=== PATIENT | female | born 1965 | race Caucasian/White ===

== ENCOUNTER 2017-11-16 08:32 | Emergency (ER) | payer BC ==
[2017-11-16] MEDS ORDERED: Sodium Chloride 0.9% 1,000 ML IV SCH ×2 (08:45→09:30)
--- NOTE | 2017-11-16 08:54 | EDM.PDOC ---
ED HPI GENERAL MEDICAL PROBLEM - General Stated Complaint: CHEST PAIN Time Seen by Provider: 11/16/17 08:25 Source of Information: Reports: Patient, Family History Limitations: Reports: No Limitations - History of Present Illness INITIAL COMMENTS - FREE TEXT/NARRATIVE: c/o dizzy, sob, cp L TKR 1m ago, at home with her yesterday doing knee exercises 3x felt fine an awakening, in kitchen and felt quite lightheaded and dizzy, sat on the floor, began to hyperventilate, EMS called, had nonspecific upper sternal CP , PO 87% on arrival here on 2 l/min altho improved to 99% in 10 minutes without addition O2 or meds never smoked, no CV hx hyperventilating and quite anxious, made limited effort to decrease respirations SBP 118, then 109, reports it usually runs 140 no leg swelling or calf pain no f/c/d, no n/v, no cough - Related Data Allergies Allergy/AdvReac Type Severity Reaction Status Date / Time No Known Allergies Allergy Verified 11/16/17 10:24 ED ROS GENERAL - Review of Systems Review Of Systems: See Below Constitutional: Reports: No Symptoms HEENT: Reports: No Symptoms Respiratory: Reports: Shortness of Breath. Denies: Cough Cardiovascular: Reports: No Symptoms Endocrine: Reports: No Symptoms GI/Abdominal: Reports: No Symptoms : Reports: No Symptoms Musculoskeletal: Reports: No Symptoms Skin: Reports: No Symptoms Neurological: Reports: No Symptoms Psychiatric: Reports: Anxiety Hematologic/Lymphatic: Reports: No Symptoms Immunologic: Reports: No Symptoms ED EXAM, DIZZINESS - Physical Exam Exam: See Below Exam Limited By: No Limitations General Appearance: Alert, WD/WN, Anxious, Mild Distress, Other ( hyperventilating, quite anxious, panicky, insisted on using commode immediately upon arrival) Eye Exam: Bilateral Eye: Normal Inspection, PERRL Ears: Normal External Exam Nose: Normal Inspection, Normal Mucosa, No Blood Throat/Mouth: Normal Inspection, Normal Lips, Normal Teeth, Normal Gums, Normal Voice, No Airway Compromise Head Exam: Atraumatic, Normocephalic Neck: Normal Inspection, Supple, Non-Tender, Full Range of Motion Respiratory/Chest: No Respiratory Distress, Lungs Clear, Normal Breath Sounds, No Accessory Muscle Use, Chest Non-Tender, Other (tachypnea, clear, good AE) Cardiovascular: No Edema, No Gallop, No JVD, No Murmur, No Rub, Tachycardia, Other (mild tachy, regular, 2/6 ELVI at LSB) GI/Abdominal: Soft, Non-Tender, No Distention Neurological: Alert, CN II-XII Intact, No Motor/Sensory Deficits, Oriented x 3 Back Exam: Normal Inspection, Full Range of Motion, NT Extremities: Normal Inspection, Normal Range of Motion, Non-Tender, Other ( trace edema b/l, symmetric) Psychiatric: Anxious Skin Exam: Warm, Dry, Intact, Normal Color, No Rash Course - Vital Signs Last Recorded V/S: Last Vital Signs Temp Pulse Resp BP Pulse Ox 98 11/16/17 09:43 - Orders/Labs/Meds Orders: Active Orders 24 hr Category Date Time Status Chest 1V Frontal [CR] Stat Exams 11/16/17 08:41 Taken Chest w Cont [CT] Stat Exams 11/16/17 09:40 Taken CULTURE BLOOD [BC] Urgent Lab 11/16/17 09:40 Received CULTURE BLOOD [BC] Urgent Lab 11/16/17 09:45 Received INFLUENZA A+B AG SCREEN [RM] Stat Lab 11/16/17 09:15 Ordered URINALYSIS W/MICROSCOPIC [UA W/MICROSCOPIC] [URIN] Stat Lab 11/16/17 08:50 Received Heparin Sodium/0.45% NaCl [Heparin 25,000 Units in 1/2 Med 11/16/17 09:45 Active NS 500 ML] 25,000 units in 500 ml IV TITRATE Piperacillin/Tazobactam [Zosyn] 4.5 gm Med 11/16/17 09:45 Active Sodium Chloride 0.9% [Normal Saline] 100 ml IV Q6H Sodium Chloride 0.9% [Normal Saline] 1,000 ml Med 11/16/17 08:45 Active IV ASDIRECTED Sodium Chloride 0.9% [Normal Saline] 1,000 ml Med 11/16/17 09:30 Active IV ASDIRECTED Blood Culture x2 Reflex Set [OM.PC] Urgent Oth 11/16/17 09:20 Ordered EKG 12 Lead [EK] Routine Ther 11/16/17 08:41 Ordered EKG 12 Lead [EK] Routine Ther 11/16/17 09:47 Ordered Medication Orders Sodium Chloride (Normal Saline) 1,000 mls @ 999 mls/hr IV ASDIRECTED SUZIE Sodium Chloride (Normal Saline) 1,000 mls @ 999 mls/hr IV ASDIRECTED SUZIE Last Admin: 11/16/17 10:00 Dose: 999 mls/hr Piperacillin Sod/Tazobactam (Sod 4.5 gm/ Sodium Chloride) 100 mls @ 200 mls/hr IV Q6H SUZIE Last Admin: 11/16/17 10:27 Dose: 200 mls/hr Heparin Sodium/Sodium Chloride (Heparin 25,000 Units In 1/2 Ns 500 Ml) 25,000 units in 500 mls @ 20.002 mls/hr IV TITRATE SUZIE; 10.4 UNITS/KG/HR PRN Reason: Protocol Last Admin: 11/16/17 10:27 Dose: 10.4 units/kg/hr, 20.002 mls/hr Labs: Laboratory Tests 11/16/17 11/16/17 11/16/17 Range/Units 08:55 08:55 08:55 WBC 20.5 H (4.5-12.0) X10-3/uL RBC 4.68 (3.23-5.20) x10(6)uL Hgb 13.8 (11.5-15.5) g/dL Hct 40.7 (30.0-51.3) % MCV 86.9 (80-96) fL MCH 29.4 (27.7-33.6) pg MCHC 33.9 (32.2-35.4) g/dL RDW 12.5 (11.5-15.5) % Plt Count 365 (125-369) X10(3)uL MPV 7.8 (7.4-10.4) fL Add Manual Diff Yes Neutrophils % (Manual) 76 (46-82) % Lymphocytes % (Manual) 21 (13-37) % Monocytes % (Manual) 3 L (4-12) % PT (8.7-11.1) INR (0.89-1.13) APTT (24.4-33.2) SECONDS D-Dimer, Quantitative > 5000 H (100-400) ng/mL Sodium 141 (135-145) mmol/L Potassium 3.0 L (3.5-5.3) mmol/L Chloride 101 (100-110) mmol/L Carbon Dioxide 27 (21-32) mmol/L BUN 20 H (7-18) mg/dL Creatinine 1.1 H (0.55-1.02) mg/dL Est Cr Clr Drug Dosing TNP Estimated GFR (MDRD) 52 L (>60) BUN/Creatinine Ratio 18.2 (9-20) Glucose 214 H (80-116) mg/dL Lactic Acid (0.4-2.2) mmol/L Calcium 9.0 (8.6-10.2) mg/dL Magnesium (1.8-2.5) mg/dL Total Bilirubin 0.4 (0.1-1.3) mg/dL AST 19 (5-25) IU/L ALT 21 (12-36) U/L Alkaline Phosphatase 76 (56-112) IU/L Troponin I (<0.017-0.056) ng/mL C-Reactive Protein (0.5-0.9) mg/dL Total Protein 7.8 (6.0-8.0) g/dL Albumin 3.1 L (3.5-5.2) g/dL Globulin 4.7 g/dL Albumin/Globulin Ratio 0.7 11/16/17 11/16/17 11/16/17 Range/Units 08:55 08:55 08:55 WBC (4.5-12.0) X10-3/uL RBC (3.23-5.20) x10(6)uL Hgb (11.5-15.5) g/dL Hct (30.0-51.3) % MCV (80-96) fL MCH (27.7-33.6) pg MCHC (32.2-35.4) g/dL RDW (11.5-15.5) % Plt Count (125-369) X10(3)uL MPV (7.4-10.4) fL Add Manual Diff Neutrophils % (Manual) (46-82) % Lymphocytes % (Manual) (13-37) % Monocytes % (Manual) (4-12) % PT 10.2 (8.7-11.1) INR 1.01 (0.89-1.13) APTT (24.4-33.2) SECONDS D-Dimer, Quantitative (100-400) ng/mL Sodium (135-145) mmol/L Potassium (3.5-5.3) mmol/L Chloride (100-110) mmol/L Carbon Dioxide (21-32) mmol/L BUN (7-18) mg/dL Creatinine (0.55-1.02) mg/dL Est Cr Clr Drug Dosing Estimated GFR (MDRD) (>60) BUN/Creatinine Ratio (9-20) Glucose (80-116) mg/dL Lactic Acid 3.1 H (0.4-2.2) mmol/L Calcium (8.6-10.2) mg/dL Magnesium (1.8-2.5) mg/dL Total Bilirubin (0.1-1.3) mg/dL AST (5-25) IU/L ALT (12-36) U/L Alkaline Phosphatase (56-112) IU/L Troponin I 0.166 H* (<0.017-0.056) ng/mL C-Reactive Protein 5.2 H* (0.5-0.9) mg/dL Total Protein (6.0-8.0) g/dL Albumin (3.5-5.2) g/dL Globulin g/dL Albumin/Globulin Ratio 11/16/17 11/16/17 Range/Units 08:55 08:55 WBC (4.5-12.0) X10-3/uL RBC (3.23-5.20) x10(6)uL Hgb (11.5-15.5) g/dL Hct (30.0-51.3) % MCV (80-96) fL MCH (27.7-33.6) pg MCHC (32.2-35.4) g/dL RDW (11.5-15.5) % Plt Count (125-369) X10(3)uL MPV (7.4-10.4) fL Add Manual Diff Neutrophils % (Manual) (46-82) % Lymphocytes % (Manual) (13-37) % Monocytes % (Manual) (4-12) % PT (8.7-11.1) INR (0.89-1.13) APTT 24.6 (24.4-33.2) SECONDS D-Dimer, Quantitative (100-400) ng/mL Sodium (135-145) mmol/L Potassium (3.5-5.3) mmol/L Chloride (100-110) mmol/L Carbon Dioxide (21-32) mmol/L BUN (7-18) mg/dL Creatinine (0.55-1.02) mg/dL Est Cr Clr Drug Dosing Estimated GFR (MDRD) (>60) BUN/Creatinine Ratio (9-20) Glucose (80-116) mg/dL Lactic Acid (0.4-2.2) mmol/L Calcium (8.6-10.2) mg/dL Magnesium 2.1 (1.8-2.5) mg/dL Total Bilirubin (0.1-1.3) mg/dL AST (5-25) IU/L ALT (12-36) U/L Alkaline Phosphatase (56-112) IU/L Troponin I (<0.017-0.056) ng/mL C-Reactive Protein (0.5-0.9) mg/dL Total Protein (6.0-8.0) g/dL Albumin (3.5-5.2) g/dL Globulin g/dL Albumin/Globulin Ratio Meds: Medications Generic Name Dose Route Start Last Admin Trade Name Freq PRN Reason Stop Dose Admin Sodium Chloride 1,000 mls @ 999 mls/hr 11/16/17 08:45 Normal Saline IV ASDIRECTED SUZIE Sodium Chloride 1,000 mls @ 999 mls/hr 11/16/17 09:30 11/16/17 10:00 Normal Saline IV 999 mls/hr ASDIRECTED SUZIE Administration Piperacillin Sod/Tazobactam 100 mls @ 200 mls/hr 11/16/17 09:45 11/16/17 10: 27 Sod 4.5 gm/ Sodium Chloride IV 200 mls/hr Q6H SUZIE Administration Heparin Sodium/Sodium Chloride 25,000 units in 500 mls @ 20.002 mls/hr 09:45 11/16/17 10:27 Heparin 25,000 Units In 1/2 Ns 500 Ml IV 10.4 units/kg/hr TITRATE SUZIE 20.002 mls/hr Protocol Administration 10.4 UNITS/KG/HR Discontinued Medications Generic Name Dose Route Start Last Admin Trade Name Freq PRN Reason Stop Dose Admin Heparin Sodium (Porcine) 4,000 units 11/16/17 10:15 11/16/17 10:25 Heparin Sodium IVPUSH 11/16/17 10:16 4,000 units ONETIME ONE Administration Iopamidol 75 ml 03/19/18 09:52 Isovue-370 (76%) IV 11/16/17 09:53 ONETIME ONE Potassium Chloride 40 meq 11/16/17 09:36 Klor-Con M20 PO 11/16/17 09:37 ONETIME ONE - Re-Assessments/Exams Free Text/Narrative Re-Assessment/Exam: 11/16/17 10:34 chest CTA with b/l 1st order PEs, accepted by Dr Donohue at ICU at [facility] in [facility], use of TPA discussed and agreed to continue monitor remains tachy at 115 but stable SBP 91 and stable after 1 liters NS, lactic acid 3.1, not required pressors, is in Trendelenburg trop 0.16, EKG with developing strain pattern Dr Donohue will repeat labs and do echo upon arrival and decide re additional interventions then images pushed pt and agree, under dx and seriousness Departure - Departure Time of Disposition: 10:36 Disposition: DC/Tfer to Acute Hospital 02 Condition: Serious Clinical Impression: Bilateral pulmonary embolism, Elevated troponin, Elevated lactic acid level, Hypokalemia - Discharge Information Referrals: Robb Orellana MD [Primary Care Provider] - - My Orders Last 24 Hours: My Active Orders 11/16/17 08:41 Chest 1V Frontal [CR] Stat EKG 12 Lead [EK] Routine 11/16/17 08:45 Sodium Chloride 0.9% [Normal Saline] 1,000 ml IV ASDIRECTED 11/16/17 08:50 URINALYSIS W/MICROSCOPIC [UA W/MICROSCOPIC] [URIN] Stat 11/16/17 09:15 INFLUENZA A+B AG SCREEN [RM] Stat 11/16/17 09:20 Blood Culture x2 Reflex Set [OM.PC] Urgent 11/16/17 09:30 Sodium Chloride 0.9% [Normal Saline] 1,000 ml IV ASDIRECTED 11/16/17 09:40 Chest w Cont [CT] Stat CULTURE BLOOD [BC] Urgent 11/16/17 09:45 CULTURE BLOOD [BC] Urgent Heparin Sodium/0.45% NaCl [Heparin 25,000 Units in 1/2 NS 500 ML] 25,000 units in 500 ml IV TITRATE Piperacillin/Tazobactam [Zosyn] 4.5 gm Sodium Chloride 0.9% [Normal Saline] 100 ml IV Q6H 11/16/17 09:47 EKG 12 Lead [EK] Routine - Assessment/Plan Last 24 Hours: My Active Orders 11/16/17 08:41 Chest 1V Frontal [CR] Stat EKG 12 Lead [EK] Routine 11/16/17 08:45 Sodium Chloride 0.9% [Normal Saline] 1,000 ml IV ASDIRECTED 11/16/17 08:50 URINALYSIS W/MICROSCOPIC [UA W/MICROSCOPIC] [URIN] Stat 11/16/17 09:15 INFLUENZA A+B AG SCREEN [RM] Stat 11/16/17 09:20 Blood Culture x2 Reflex Set [OM.PC] Urgent 11/16/17 09:30 Sodium Chloride 0.9% [Normal Saline] 1,000 ml IV ASDIRECTED 11/16/17 09:40 Chest w Cont [CT] Stat CULTURE BLOOD [BC] Urgent 11/16/17 09:45 CULTURE BLOOD [BC] Urgent Heparin Sodium/0.45% NaCl [Heparin 25,000 Units in 1/2 NS 500 ML] 25,000 units in 500 ml IV TITRATE Piperacillin/Tazobactam [Zosyn] 4.5 gm Sodium Chloride 0.9% [Normal Saline] 100 ml IV Q6H 11/16/17 09:47 EKG 12 Lead [EK] Routine
[2017-11-16] MEDS ORDERED: Potassium Chloride 20 MEQ Tab.ER PO ONE (09:36)
[2017-11-16] MEDS ORDERED: Piperacillin/Tazobactam 4.5 GM in Sodium Chloride 0.9% 100 ML IV SCH (09:45)
[2017-11-16] MEDS ORDERED: Heparin Sodium/0.45% NaCl 25,000 UNITS/500 ML BAG IV SCH (09:45)
[2017-11-16] MEDS ORDERED: Iopamidol 755 Mg/ML 75 ML Bottle IV ONE (09:52)
[2017-11-16] MEDS ORDERED: Heparin Sodium 5,000 Units/ML Vial IVPUSH ONE (10:15)
[2017-11-16] MEDS ORDERED: Norepinephrine 4 MG in Dextrose 5% in Water 246 ML IV SCH ×2 (11:00)
--- NOTE | 2017-11-16 11:14 | CT ---
INDICATION: Short of breath, D-dimer greater than 5,000. COMPUTERIZED TOMOGRAPHY ANGIOGRAPHY OF THE CHEST WITH CONTRAST FOR PULMONARY ARTERIES: Spiral 1.25-mm images were obtained through the chest with 75 mL Isovue-370 at 2.5 mL per second, with sagittal and coronal reconstructions, . No comparisons were available. Total Exam DLP = 848.85 mGy-cm. The images were slightly ahead of the bolus of contrast, making detail less than ideal of the more peripheral pulmonary arteries. However, there is definite evidence for central pulmonary emboli in first order pulmonary arteries bilaterally. A saddle embolus was not present, however. Some of the emboli appear to be extending into the more peripheral pulmonary arteries. The severity of the pulmonary emboli appears to be slightly greater on the left. There is some parenchymal density at the left lung base - left lower lobe posteriorly at the diaphragm, which may be on the basis of minimal areas of pulmonary infarct, as they are subpleural in location, but it could also be on the basis of minimal pneumonia or possibly fibrosis. There is an appearance suggesting lobar pulmonary emphysema, although some edema may also be present in the interstitium. No mediastinal mass was identified. The heart appears enlarged. Small fixed hiatal hernia is suggested. No gross abnormality of the included upper abdomen was noted. IMPRESSION: Fairly extensive bilateral pulmonary emboli centrally and appearing to extend more peripherally also - detail less than ideal due to images somewhat ahead of the bolus of contrast. Report was called to Dr. Pantoja immediately after the examination was completed, 11/16/2017. CORINA
--- NOTE | 2017-11-16 16:29 | CR ---
INDICATION: Chest pain. CHEST: Portable AP upright view of the chest was obtained 11/16/2017 and revealed the heart to be enlarged, the aorta slightly tortuous. Overlying EKG leads are noted. An active infiltrate or effusion was not identified. IMPRESSION: 1. No acute process. 2. ASHD. MTDD
== END 2017-11-16 11:17 ==
LOC: FB.ED 08:32
DX: I26.99 Other pulmonary embolism without acute cor pulmonale (principal); R79.89 Other specified abnormal findings of blood chemistry; E87.6 Hypokalemia
CPT/HCPCS: 36415; 71045; 71260; 80053; 83605; 83735; 84484; 85025; 85379; 85610; 85730; 86140; 87040; 93005; 96365; 96375; 99285; A9270; J1644; J2543; J7030; J7040; J7060

== ENCOUNTER 2018-05-10 21:21 | Emergency (ER) | payer BC ==
[2018-05-10] MEDS ORDERED: Alum Hydroxide/Mag Hydroxide 15 ML, Lidocaine 2% 15 ML PO ONE ×2 (21:41)
--- NOTE | 2018-05-10 21:48 | EDM.PDOC ---
ED HPI GENERAL MEDICAL PROBLEM - General Chief Complaint: Chest Pain Stated Complaint: CHEST PAIN Time Seen by Provider: 05/10/18 21:35 Source of Information: Reports: Patient, Family, Old Records History Limitations: Reports: No Limitations - History of Present Illness INITIAL COMMENTS - FREE TEXT/NARRATIVE: Katy comes into [facility] ED with a 7 hour hx of retrosternal chest pain, nonradiating, characterized as a pressure sensation. There is no palpitations, sweats, rut dyspnea, dizziness, lt headiness, heartburn, gas or belching. She continued shift work and confided to spouse when she got home. She has tried no meds. There is a PMH of PE in October 2017, associated with a L DVT. She has been on Jantoven ever since, last INR 2.2 taken last week. - Related Data Allergies Allergy/AdvReac Type Severity Reaction Status Date / Time No Known Allergies Allergy Verified 05/10/18 22:43 Home Meds: Home Meds Warfarin Sodium [Jantoven] 7.5 mg PO SUTUWETHSA 05/10/18 [History] Warfarin Sodium [Jantoven] 10 mg PO MOFR 05/10/18 [History] amLODIPine Besylate [Amlodipine Besylate] 10 mg PO DAILY 05/10/18 [History] Past Medical History Cardiovascular History: Reports: Blood Clots/VTE/DVT, Hypertension Respiratory History: Reports: PE - Past Surgical History Musculoskeletal Surgical History: Reports: Knee Replacement ED ROS GENERAL - Review of Systems Review Of Systems: See Below Constitutional: Reports: No Symptoms HEENT: Reports: No Symptoms Respiratory: Reports: No Symptoms Cardiovascular: Reports: Chest Pain Endocrine: Reports: No Symptoms GI/Abdominal: Reports: No Symptoms : Reports: No Symptoms Musculoskeletal: Reports: No Symptoms Skin: Reports: No Symptoms Neurological: Reports: No Symptoms Psychiatric: Reports: No Symptoms Hematologic/Lymphatic: Reports: No Symptoms Immunologic: Reports: No Symptoms ED EXAM, GENERAL - Physical Exam Exam: See Below Exam Limited By: No Limitations General Appearance: Alert, WD/WN, No Apparent Distress, Anxious, Obese Eye Exam: Bilateral Eye: EOMI, Normal Inspection, PERRL Ears: Normal External Exam Nose: Normal Inspection Throat/Mouth: Normal Inspection, Normal Lips, Normal Teeth, Normal Gums, Normal Oropharynx, Normal Voice, No Airway Compromise Head: Normocephalic Neck: Normal Inspection, Supple Respiratory/Chest: No Respiratory Distress, Lungs Clear, No Accessory Muscle Use , Chest Non-Tender Cardiovascular: Normal Peripheral Pulses, Regular Rate, Rhythm, No Edema, No JVD , No Murmur, No Rub GI/Abdominal: Normal Bowel Sounds, Soft, Non-Tender, No Organomegaly, No Distention, No Mass (Female) Exam: Deferred Rectal (Female) Exam: Deferred Back Exam: Normal Inspection Extremities: Normal Inspection, Normal Range of Motion Neurological: Alert, Oriented, CN II-XII Intact, Normal Cognition, Normal Gait, No Motor/Sensory Deficits Psychiatric: Normal Affect, Anxious Skin Exam: Warm, Dry, Intact, Normal Color Lymphatic: No Adenopathy Course - Vital Signs Text/Narrative:: Following assessment at the [facility] ED, a 12 lead ekg was normal for age. Subseqent lab studies noted normal CBC and CMP, Troponin I <0.017, d dimer elevated to .98, INR 1.85 was therapeutic. A subsequent Chest CT angio was negative for PE. Patient was asx at the time of discharge. - Orders/Labs/Meds Orders: Active Orders 24 hr Category Date Time Status EKG Documentation Completion [RC] ASDIRECTED Care 05/10/18 21:43 Active Ang Chest [CT] Stat Exams 05/10/18 22:32 Taken Sodium Chloride 0.9% [Saline Flush] Med 05/10/18 22:32 Active 10 ml FLUSH ASDIRECTED PRN Peripheral IV Insertion Adult [OM.PC] Routine Oth 05/10/18 22:32 Ordered EKG 12 Lead [EK] Routine Ther 05/10/18 21:42 Ordered Medication Orders Sodium Chloride (Saline Flush) 10 ml FLUSH ASDIRECTED PRN PRN Reason: Keep Vein Open Labs: Laboratory Tests 05/10/18 05/10/18 05/10/18 Range/Units 21:57 21:57 21:57 WBC 11.8 (4.5-12.0) X10-3/uL RBC 4.65 (3.23-5.20) x10(6)uL Hgb 14.0 (11.5-15.5) g/dL Hct 41.1 (30.0-51.3) % MCV 88.4 (80-96) fL MCH 30.1 (27.7-33.6) pg MCHC 34.1 (32.2-35.4) g/dL RDW 13.9 (11.5-15.5) % Plt Count 343 (125-369) X10(3)uL MPV 7.8 (7.4-10.4) fL Neut % (Auto) 62.1 (46-82) % Lymph % (Auto) 27.7 (13-37) % [place] % (Auto) 7.9 (4-12) % Eos % (Auto) 2 (1.0-5.0) % Baso % (Auto) 1 (0-2) % Neut # (Auto) 7.3 (1.6-8.3) # Lymph # (Auto) 3.3 (0.6-5.0) # [place] # (Auto) 0.9 (0.0-1.3) # Eos # (Auto) 0.2 (0.0-0.8) # Baso # (Auto) 0.1 (0.0-0.2) # PT (8.7-11.1) INR (0.89-1.13) D-Dimer, Quantitative 0.98 H (0.0-0.59) mg/LFEU Sodium 135 (135-145) mmol/L Potassium 3.5 (3.5-5.3) mmol/L Chloride 103 (100-110) mmol/L Carbon Dioxide 26 (21-32) mmol/L BUN 23 H (7-18) mg/dL Creatinine 0.7 (0.55-1.02) mg/dL Est Cr Clr Drug Dosing TNP Estimated GFR (MDRD) > 60 (>60) BUN/Creatinine Ratio 32.9 H (9-20) Glucose 112 D (80-116) mg/dL Calcium 9.3 (8.6-10.2) mg/dL Total Bilirubin 0.4 (0.1-1.3) mg/dL AST 15 D (5-25) IU/L ALT 26 D (12-36) U/L Alkaline Phosphatase 73 (56-112) IU/L Troponin I (<0.017-0.056) ng/mL Total Protein 8.2 H (6.0-8.0) g/dL Albumin 3.6 (3.5-5.2) g/dL Globulin 4.6 g/dL Albumin/Globulin Ratio 0.8 05/10/18 05/10/18 Range/Units 21:57 21:57 WBC (4.5-12.0) X10-3/uL RBC (3.23-5.20) x10(6)uL Hgb (11.5-15.5) g/dL Hct (30.0-51.3) % MCV (80-96) fL MCH (27.7-33.6) pg MCHC (32.2-35.4) g/dL RDW (11.5-15.5) % Plt Count (125-369) X10(3)uL MPV (7.4-10.4) fL Neut % (Auto) (46-82) % Lymph % (Auto) (13-37) % [place] % (Auto) (4-12) % Eos % (Auto) (1.0-5.0) % Baso % (Auto) (0-2) % Neut # (Auto) (1.6-8.3) # Lymph # (Auto) (0.6-5.0) # [place] # (Auto) (0.0-1.3) # Eos # (Auto) (0.0-0.8) # Baso # (Auto) (0.0-0.2) # PT 17.8 H (8.7-11.1) INR 1.85 H (0.89-1.13) D-Dimer, Quantitative (0.0-0.59) mg/LFEU Sodium (135-145) mmol/L Potassium (3.5-5.3) mmol/L Chloride (100-110) mmol/L Carbon Dioxide (21-32) mmol/L BUN (7-18) mg/dL Creatinine (0.55-1.02) mg/dL Est Cr Clr Drug Dosing Estimated GFR (MDRD) (>60) BUN/Creatinine Ratio (9-20) Glucose (80-116) mg/dL Calcium (8.6-10.2) mg/dL Total Bilirubin (0.1-1.3) mg/dL AST (5-25) IU/L ALT (12-36) U/L Alkaline Phosphatase (56-112) IU/L Troponin I < 0.017 L (<0.017-0.056) ng/mL Total Protein (6.0-8.0) g/dL Albumin (3.5-5.2) g/dL Globulin g/dL Albumin/Globulin Ratio Meds: Medications Generic Name Dose Route Start Last Admin Trade Name Freq PRN Reason Stop Dose Admin Sodium Chloride 10 ml 05/10/18 22:32 Saline Flush FLUSH ASDIRECTED PRN Keep Vein Open Discontinued Medications Generic Name Dose Route Start Last Admin Trade Name Freq PRN Reason Stop Dose Admin Al Hydroxide/Mg Hydroxide 15 0 ml 05/10/18 21:41 05/10/18 21:54 ml/ Lidocaine HCl 15 ml PO 05/10/18 21:42 30 ml ONETIME ONE Administration Iopamidol 100 ml 05/10/18 22:35 05/10/18 22:49 Isovue-370 (76%) IV 05/10/18 22:36 100 ml . DIRECTED ONE Administration Departure - Departure Time of Disposition: 23:24 Disposition: Home, Self-Care 01 Condition: Good Clinical Impression: Atypical chest pain Referrals: Robb Orellana MD [Primary Care Provider] - Forms: ED Department Discharge - Problem List & Annotations (1) Atypical chest pain SNOMED Code(s): 818867643 Code(s): R07.89 - OTHER CHEST PAIN Status: Acute Current Visit: Yes Annotation/Comment:: I suggested follow up with PCP and consulting IM regarding disposition of anticoagulation therapy. - Problem List Review Problem List Initiated/Reviewed/Updated: Yes - My Orders Last 24 Hours: My Active Orders 05/10/18 21:42 EKG 12 Lead [EK] Routine 05/10/18 21:43 EKG Documentation Completion [RC] ASDIRECTED 05/10/18 22:32 Ang Chest [CT] Stat Sodium Chloride 0.9% [Saline Flush] 10 ml FLUSH ASDIRECTED PRN Peripheral IV Insertion Adult [OM.PC] Routine - Assessment/Plan Last 24 Hours: My Active Orders 05/10/18 21:42 EKG 12 Lead [EK] Routine 05/10/18 21:43 EKG Documentation Completion [RC] ASDIRECTED 05/10/18 22:32 Ang Chest [CT] Stat Sodium Chloride 0.9% [Saline Flush] 10 ml FLUSH ASDIRECTED PRN Peripheral IV Insertion Adult [OM.PC] Routine Plan: Follow up with PCP.
[2018-05-10] MEDS ORDERED: Sodium Chloride 0.9% 10 ML Syringe FLUSH PRN (22:32)
[2018-05-10] MEDS ORDERED: Iopamidol 755 Mg/ML 100 ML Bottle IV ONE (22:35)
== END 2018-05-10 23:40 | disposition home or self-care (01) ==
LOC: FB.ED 21:21
DX: R07.89 Other chest pain (principal); I10 Essential (primary) hypertension; Z79.01 Long term (current) use of anticoagulants
CPT/HCPCS: 36415; 71275; 80053; 84484; 85025; 85379; 85610; 93005; 99285; A9270; Q9967

== ENCOUNTER 2022-07-14 07:15 | Day surgery (SDC) | payer BC ==
[~2022-07-14 07:15] MED LIST: Lactated Ringers 1,000 ML IV SCH; Sodium Chloride 0.9% 10 ML Syringe FLUSH PRN
[2022-07-14] MEDS ORDERED: Propofol 200 MG/20 ML SDV IV ONE (07:16)
[2022-07-14] MEDS ORDERED: Ketamine 500 mg/10 ML MDV IV ONE (07:16)
== END 2022-07-14 10:41 | disposition home or self-care (01) ==
LOC: FB.SDS 07:15
PROVIDERS: ATTEND Surgery
DX: Z12.11 Encounter for screening for malignant neoplasm of colon (principal); K63.5 Polyp of colon; I10 Essential (primary) hypertension; E78.5 Hyperlipidemia, unspecified; I26.99 Other pulmonary embolism without acute cor pulmonale; M19.90 Unspecified osteoarthritis, unspecified site; Z79.899 Other long term (current) drug therapy; Z91.048 Other nonmedicinal substance allergy status; Z98.890 Other specified postprocedural states
CPT/HCPCS: 00811-QZ; 88305; J2704; J3490; J7120